=== PATIENT | female | born 1995 ===

== ENCOUNTER 2017-02-09 06:10 | Day surgery (SDC) | payer OTHER ==
--- NOTE | 2017-02-08 19:13 | HISTORY AND PHYSICAL ---
ADMITTED: 02/09/2017 HISTORY OF PRESENT ILLNESS: The patient is a 21-year-old young lady who has had 2 different foot surgeries by a electronic pagination system operator in the [facility]. She has subsequently developed a soft tissue deep abscess overlying the right forefoot. It has gotten progressively more painful. They removed hardware, which did not resolve the issue. She had an MRI under the direction of a Dr. Allen on 12/12/2016 to rule out osteomyelitis, which was negative. MEDICAL/SURGICAL HISTORY: Past medical history: Essentially Noncontributory. Surgical history: Right foot surgery x2 and wisdom teeth. PRIMARY CARE PROVIDER: Dr. Allen and Brenna Friend, [place]. MEDICATIONS: 1. Apri 0.15 mg control pill. ALLERGIES: 1. CURRENT REPORTS NO KNOWN DRUG OR FOOD ALLERGIES. SOCIAL HISTORY: She is a college student, employed part-time. Does not smoke, does not drink. FAMILY HISTORY: Noncontributory to chief complaint. REVIEW OF SYSTEMS: Ten-point review of systems noncontributory to chief complaint. PHYSICAL EXAMINATION: GENERAL: The patient is alert, oriented x3. HEENT: PERRLA. Normocephalic. HEART: Regular rate and rhythm. Regular S1 and S2. LUNGS: Respiration clear to auscultation. No wheezing, rhonchi, or rales. ABDOMEN: Soft, tender, nondistended. No palpable masses. EXTREMITIES: Lower Extremity/Vascular: DP and PT pulses are palpable. Subpapillary venous plexus capillary refill within normal limits. There is a palpable well- demarcated mass on the dorsum of second metatarsal ultrasound, it measured approximately 3 cm x 2. LAB/IMAGING: Laboratories: We did do a puncture aspiration, which revealed neutrophils and gram-positive rods. Stated MRIs were negative for osteomyelitis. IMPRESSION: 1. Soft tissue mass deep abscess right foot. PLAN: The patient is scheduled for an outpatient procedure consisting of an incision and drainage with pulse irrigation of the right foot. She is well aware of the planned procedure. There are no contraindications to surgery at this time. Scheduled on outpatient basis at [facility] on 02/09/2017.
--- NOTE | 2017-02-08 19:13 | HISTORY AND PHYSICAL ---
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 She has subsequently developed a soft tissue deep abscess overlying the right forefoot. It has gotten progressively more painful. They removed hardware, which did not resolve the issue. She had an MRI under the direction of a Dr. Allen on 12/12/2016 to rule out osteomyelitis, which was negative. MEDICAL/SURGICAL HISTORY: Past medical history: Essentially Noncontributory. Surgical history: Right foot surgery x2 and wisdom teeth. PRIMARY CARE PROVIDER: Dr. Allen and Brenna Friend, [place]. MEDICATIONS: 1. Apri 0.15 mg control pill. ALLERGIES: 1. CURRENT REPORTS NO KNOWN DRUG OR FOOD ALLERGIES. SOCIAL HISTORY: She is a college student, employed part-time. Does not smoke, does not drink. FAMILY HISTORY: Noncontributory to chief complaint. REVIEW OF SYSTEMS: Ten-point review of systems noncontributory to chief complaint. PHYSICAL EXAMINATION: GENERAL: The patient is alert, oriented x3. HEENT: PERRLA. Normocephalic. HEART: Regular rate and rhythm. Regular S1 and S2. LUNGS: Respiration clear to auscultation. No wheezing, rhonchi, or rales. ABDOMEN: Soft, tender, nondistended. No palpable masses. EXTREMITIES: Lower Extremity/Vascular: DP and PT pulses are palpable. Subpapillary venous plexus capillary refill within normal limits. There is a palpable well- demarcated mass on the dorsum of second metatarsal ultrasound, it measured approximately 3 cm x 2. LAB/IMAGING: Laboratories: We did do a puncture aspiration, which revealed neutrophils and gram-positive rods. Stated MRIs were negative for osteomyelitis. IMPRESSION: 1. Soft tissue mass deep abscess right foot. PLAN: The patient is scheduled for an outpatient procedure consisting of an incision and drainage with pulse irrigation of the right foot. She is well aware of the planned procedure. There are no contraindications to surgery at this time. Scheduled on outpatient basis at [facility] on 02/09/2017.
[~2017-02-09] VITALS: Ht 152.4 cm; Wt 66.5 kg
[~2017-02-09 06:10] MED LIST: [UNRECOGNIZED DRUG - OTHER] PO
--- NOTE | 2017-02-09 08:34 | Provider's Discharge Care Plan ---
Problem, Goal, Plan Problem List 1. SOFT TISSUE INFECTION Goals: Improve function Instructions: Follow up as directed
--- NOTE | 2017-02-09 08:34 | Provider's Discharge Care Plan ---
Problem, Goal, Plan Problem List 1. SOFT TISSUE INFECTION Goals: Improve function Instructions: Follow up as directed
--- NOTE | 2017-02-09 14:19 | OPERATIVE REPORT ---
DATE OF SURGERY: 02/09/2017 SURGEON: Piter Freire DPM PREOPERATIVE DIAGNOSES: 1. Infection and soft tissue mass, right foot POSTOPERATIVE DIAGNOSIS: 1. Infection and soft tissue mass, right foot PROCEDURE PERFORMED: 1. Incision and drainage and debridement of necrotic soft tissue, right foot ANESTHESIA: LMA, local. Utilized 20 mL of 0.5% bupivacaine plain. MATERIALS: Used 3000 liters of lactated Ringers mixed with 50,000 units of bacitracin. 3-0 nylon and 1/2-inch Nu Gauze packing. COMPLICATIONS: None. CONDITION: The patient tolerated anesthesia and procedure well. INDICATIONS: The patient is a 21-year-old young lady who has had 2 previous foot surgeries on the right foot by a provider in [place]. The procedures actually came out and addressed the pathology nicely, without any complications, actually having good results. However, on the notes to the provider, she developed some type of a soft tissue infection. MRIs revealed that there was no osteomyelitis. However, the mass continued, infection was getting larger and more painful in the right foot, and an in- office procedure or in-office exsanguination of the mass, which was also palpable and visualized on an ultrasound, revealed a purulence. It was sent off, with gram-positive rods identified. The cellulitis is now present to the mid foot levels and painful. It is deemed necessary to carry out an incision and drainage and irrigation. She is well aware of the planned procedure. No contraindications at this time. SURGICAL TECHNIQUE: The patient was brought to the operating room and placed on the operative table in the supine position. At this time, a general anesthetic was administered. The right lower extremity was then prepped and draped in normal sterile fashion. An intraoperative pause was carried out for positive identification of proper limb, consent form verified and confirmed. An Esmarch bandage was used at the ankle joint only, and used as our tourniquet. Attention was directed to procedure #1. Incision and drainage and debridement of the soft tissue mass, right foot. At this time, a linear incision was made overlying the palpable mass. It was dissected by sharp and blunt dissection. Upon entering into the subcutaneous layer, purulent drainage was starting to exit a well-demarcated mass occurring and tunneling from the extensor hallucis tendon sheath medially. The sheath was then incised laterally on its lateral aspect, and more of the purulence was seen exiting. Necrotic tissue was then excised in toto. It seemed to be very superficial, along the extensor tendons only. The area was then pulse irrigated with 3000 liters of lactated Ringers mixed with 50,000 units of bacitracin. Specimen will be sent for both gross and microanalysis as well as a deep culture taken. The proximal and distal ends of the incision were reapproximated with 4-0 nylon and the center portion of the wound was then lightly packed with 1/2-inch plain Nu Gauze. The area was then locally anesthetized with the aforementioned local anesthetic. The Esmarch bandage was released, with reactive hyperemia and good digital perfusion noted. The patient tolerated the anesthesia and procedure well and left the operating room with vital signs stable. While in recovery, she will have utilization of a fracture boot. Instructed family members on changing the dressing on Tuesday, and with packing samples dispensed, as well as instructed them to come to the office for some sterile dressing and gauze. Prognosis is guarded. We will hold off on any additional antibiotic coverage until the deep cultures are back. She did get a gram of cefazolin preoperatively, in the preoperative arena.
== END 2017-02-09 11:10 | disposition home or self-care (01) ==
LOC: OR SRH 06:10 → SCU SRH 06:13 → OR SRH 07:30
PROVIDERS: Podiatrist
PROC: 0J9Q0ZZ Drainage of Right Foot Subcutaneous Tissue and Fascia, Open Approach (ICD-10-PCS; principal; 2017-02-09 07:30)
DX: L02.611 Cutaneous abscess of right foot (principal); B96.89 Other specified bacterial agents as the cause of diseases classified elsewhere
CPT/HCPCS: 29229; 29240; 50002; 60001; 70002; 80212; 80575; 82224; 90100; 90131; 90309; 90470; 93070; 95059